=== PATIENT | male | born 1930 | race Caucasian/White ===

== ENCOUNTER 2017-09-12 22:40 | Emergency (ER) | payer MEDICARE ==
[~2017-09-12] VITALS: Ht 172.7 cm; Wt 70.8 kg
[~2017-09-12 22:40] MED LIST: ACYC800 PO; ASPI81EC PO; DIAZ5 PO; ENDOCET; HYDACE5 PO; LISHYD2012 PO; OXYC5 PO; TOBR.3OPSO OP; UNK BP MED
[2017-09-12] MEDS ORDERED: PRAZ1 PO (23:00)
== END 2017-09-13 01:35 | disposition home or self-care (01) ==
LOC: ER 22:40
DX: S05.42XA Penetrating wound of orbit with or without foreign body, left eye, initial encounter (principal); S09.90XA Unspecified injury of head, initial encounter; I10 Essential (primary) hypertension; J44.9 Chronic obstructive pulmonary disease, unspecified; Z79.899 Other long term (current) drug therapy; Z79.82 Long term (current) use of aspirin; W01.0XXA Fall on same level from slipping, tripping and stumbling without subsequent striking against object, initial encounter
CPT/HCPCS: 70450; 70486; 99284

== ENCOUNTER 2018-05-04 16:02 | Emergency (ER) | payer OTHER, MEDICARE ==
[~2018-05-04] VITALS: Ht 177.8 cm; Wt 70.3 kg
[~2018-05-04 16:02] MED LIST changes: +PRAZ1 PO
[2018-05-04] MEDS ORDERED: ZESTORETIC 20-121 EA (16:21)
[2018-05-04] MEDS ORDERED: OLAN10 PO (16:21)
[2018-05-04] MEDS ORDERED: ZOLP10 PO (16:22)
[2018-05-04] MEDS ORDERED: SERT100 PO (16:22)
[2018-05-04] MEDS ORDERED: SERT25 PO (16:22)
[2018-05-04 17:31] LABS: BASOPHILS ABSOLUTE AUTO 0.07 K/mm3 (0.00-0.23); BASOPHILS PERCENT AUTO 1 % (0-2); EOSINOPHILS ABSOLUTE AUTO 0.19 K/mm3 (0.00-0.68); EOSINOPHILS PERCENT AUTO 3 % (0-6); Hematocrit 40.7 % (37.0-53.0); Hemoglobin 13.3 g/dL (13.5-17.5); IMMATURE GRAN ABSOLUTE AUTO 0.02 K/mm3 (0.00-0.10); IMMATURE GRAN PERCENT AUTO 0 % (0-1); LYMPHOCYTES ABSOLUTE AUTO 1.57 K/mm3 (0.84-5.20); LYMPHOCYTES PERCENT AUTO 21 % (21-46); MONOCYTES ABSOLUTE AUTO 0.88 K/mm3 (0.16-1.47); MONOCYTES PERCENT AUTO 12 % (4-13); Mean Corpuscular HGB 30.9 pg (26.0-34.0); Mean Corpuscular HGB Conc 32.7 g/dL (31.5-36.5); Mean Corpuscular Volume 94 fL (80-100); Mean Platelet Volume 10.7 fL (9.1-12.4); NEUTROPHILS PERCENT AUTO 63 % (41-73); Platelet Count 228 K/mm3 (150-400); RDW Coefficient Variation 14.3 % (11.7-14.2); Red Blood Cell Count 4.31 M/mm3 (4.30-5.90); White Blood Cell Count 7.33 K/mm3 (4.00-11.30)
[2018-05-04 17:37] LABS: Alanine Aminotransfer (ALT/SGP 29 U/L (12-78); Albumin, Blood 3.3 g/dL (3.4-5.0); Albumin/Globulin Ratio 0.9 (0.8-1.8); Alk Phos 56 U/L (50-136); Anion Gap 8 mmol/L (6-16); Aspartate Aminotrans (AST/SGOT 28 U/L (12-37); Bilirubin, Total 0.2 mg/dL (0.1-1.0); Blood Urea Nitrogen 32 mg/dL (8-24); Bun/Creatinine Ratio 23.5 (12.0-20.0); CO2, Blood 23 mmol/L (21-32); Calcium, Blood 7.6 mg/dL (8.5-10.1); Chloride, Blood 108 mmol/L (98-108); Creatinine, Blood 1.36 mg/dL (0.60-1.20); Globulin, Blood 3.6 g/dL (2.2-4.0); Glomerular Filtration Rate 53 (60-); Glucose, Blood 137 mg/dL (70-99); Potassium, Blood 4.3 mmol/L (3.5-5.5); Sodium, Blood 139 mmol/L (136-145); Total Protein, Blood 6.9 g/dL (6.4-8.2)
[2018-05-04 17:42] LABS: Ethanol (Alcohol), Blood, Med <3 mg/dL
[2018-05-04 17:46] LABS: International Normalized Ratio 1.01; Prothrombin Time Results 10.7 Sec (9.7-11.5)
[2018-05-04 20:30] LABS: U Amphetamine Screen Not Detected; U Barbituate Screen Not Detected; U Benzodiazapine Screen Not Detected; U Buprenorphine Screen Not Detected; U Cannabinoids Screen Not Detected; U Cocaine Screen Not Detected; U Methadone Screen Not Detected; U Methamphetamine Screen Not Detected; U Opiates Screen Not Detected; U Oxycodone Screen Not Detected; U Phencyclidine Screen Not Detected; U Propoxyphene Screen Not Detected
== END 2018-05-04 20:23 | disposition short-term general hospital (02) ==
LOC: ER 16:02
PROVIDERS: Emergency Medicine
DX: S06.9X9A Unspecified intracranial injury with loss of consciousness of unspecified duration, initial encounter (principal); S01.81XA Laceration without foreign body of other part of head, initial encounter; V53.5XXA Driver of pick-up truck or van injured in collision with car, pick-up truck or van in traffic accident, initial encounter; Z79.899 Other long term (current) drug therapy; Z79.82 Long term (current) use of aspirin; I10 Essential (primary) hypertension; J44.9 Chronic obstructive pulmonary disease, unspecified
CPT/HCPCS: 12014; 70450; 71045; 71260; 72125; 74177; 80053; 83690; 85025; 85610; 85730; 86850; 86900; 86901; 96365; 96367; 99285-25; G0480; J1953; J7050; Q9967

== ENCOUNTER → 2018-09-03 | Outpatient (CLI) | payer MEDICARE ==
[~2018-09-03] MED LIST changes: +OLAN10 PO; +SERT100 PO; +SERT25 PO; +ZESTORETIC 20-121 EA; +ZOLP10 PO
== END | disposition home or self-care (01) ==
LOC: LAB SHORT 14:50 → LAB EV 14:50
DX: R32 Unspecified urinary incontinence (principal)
CPT/HCPCS: 87077; 87086; 87186

== ENCOUNTER → 2018-10-07 | Outpatient (CLI) | payer MEDICARE ==
[2018-10-07 15:20] LABS: PSA, %Free 31.3 %; PSA, Free 0.224 ng/mL; Prostate Specific Antigen 0.715 ng/mL (0.000-4.000)
== END | disposition home or self-care (01) ==
LOC: LAB SHORT 12:02 → LAB EV 12:02
PROVIDERS: Family Medicine
DX: N40.3 Nodular prostate with lower urinary tract symptoms (principal)
CPT/HCPCS: 84153; 84154